=== PATIENT | male | born 2000 | race Caucasian/White ===

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

== ENCOUNTER 2025-08-31 07:16 | Emergency (ER) | payer OTHER ==
[~2025-08-31] VITALS: Ht 180.3 cm; Wt 74.8 kg
[2025-08-31] MEDS ORDERED: OMEPRAZOLE-BIC1 EAC1 PO (07:43)
[2025-08-31] MEDS ORDERED: PROAIR RESPICL90 MCG (07:44)
[2025-08-31] MEDS ORDERED: DEXAMETHASONE SODIUM PHOSPHATE 4 MG/ML VIAL IM STA (08:58)
[2025-08-31] MEDS ORDERED: DEXAMETHASONE4 MG PO (09:05)
[2025-08-31] MEDS ORDERED: SINGULAIR10 MG PO (09:05)
[2025-08-31] MEDS ORDERED: ZYRTEC10 MG PO (09:05)
[2025-08-31] MEDS ORDERED: BENZONATATE200 M1 PO (09:05)
[2025-08-31] MEDS ORDERED: DEXAMETHASONE SODIUM PHOSPHATE 4 MG/ML VIAL ONE (09:19)
== END 2025-08-31 09:29 | disposition home or self-care (01) ==
LOC: EDBD 07:16 → ER 07:16
DX: J45.909 Unspecified asthma, uncomplicated (principal); Z91.018 Allergy to other foods; Z91.0120 Allergy to eggs, unspecified